=== PATIENT | male | born 1960 | race American Indian/Alaskan Native ===

== ENCOUNTER 2021-01-03 07:34 | Outpatient (CLI) | payer OTHER ==
--- NOTE | 2021-01-03 08:40 | Cat Scan Report ---
CT ABDOMEN AND PELVIS WITHOUT CONTRAST INDICATION / CLINICAL INFORMATION: MALIGNANT NEOPLASM OF PROSTATE. TECHNIQUE: Axial CT images were obtained through the abdomen and pelvis without IV contrast. All CT scans at [facility] location are performed using CT dose reduction for ALARA by means of automated exposure control. COMPARISON: None available. FINDINGS: LOWER CHEST: Mild linear atelectasis right middle lobe. LIVER: No significant abnormality. GALLBLADDER: No significant abnormality. BILE DUCTS: No significant abnormality. PANCREAS: No significant abnormality. SPLEEN: No significant abnormality. ADRENALS: No significant abnormality. RIGHT KIDNEY / URETER: No significant abnormality. LEFT KIDNEY / URETER: No significant abnormality. STOMACH / SMALL BOWEL: No significant abnormality. COLON: No significant abnormality. APPENDIX: No significant abnormality. PERITONEUM: No free fluid. No free air. No fluid collection. LYMPH NODES: No significant adenopathy. AORTA / ARTERIES: Mild atherosclerotic calcification without acute abnormality. IVC / VEINS: No significant abnormality. URINARY BLADDER: Mild thickening of the urinary bladder wall likely secondary to partial decompressio n. REPRODUCTIVE ORGANS: No significant abnormality. ADDITIONAL FINDINGS: None. SKELETAL SYSTEM: Small sclerotic foci of the right iliac and femoral head neck junction measure 4-5 m m and likely represent bone islands. No aggressive appearing osseous lesions. Multilevel degenerative changes are noted of the spine. Moderate bilateral hip arthrosis. IMPRESSION: 1. No acute inflammatory process of the abdomen or pelvis. 2. No significant parenchymal lesion, lymphadenopathy, or evidence of osseous metastases. Signer Name: Issac Rizvi MD Signed: 01/03/2021 8:36 AM Workstation Name: [id number]
--- NOTE | 2021-01-03 11:49 | Nuclear Medicine Report ---
NUCLEAR MEDICINE BONE SCAN, WHOLE BODY INDICATION / CLINICAL INFORMATION: MALIGNANT NEOPLASM OF PROSTATE. TECHNIQUE: 26.3 mCi of Tc-99m MDP were injected IV. Images were obtained of the whole body. COMPARISON: No prior nuclear medicine bone scan. CT abdomen and pelvis 01/03/2021 FINDINGS: BONES: No osseous lesion or other abnormality. JOINTS: Mild degenerative activity in the bilateral knees and right foot. Foci of increased uptake lo wer lumbar spine correlates with facet arthropathy seen on recent CT SOFT TISSUES: No significant abnormality. KIDNEYS: Minimal retention of radiotracer in bilateral kidneys. ADDITIONAL FINDINGS: None. IMPRESSION: 1. No scintigraphic evidence of osseous metastases. Signer Name: Issac Rizvi MD Signed: 01/03/2021 11:44 AM Workstation Name: [id number]
== END 2021-01-03 07:35 | disposition home or self-care (01) ==
LOC: NM 07:34
PROVIDERS: ATTEND Urology
DX: C61 Malignant neoplasm of prostate (principal); J98.11 Atelectasis; I70.0 Atherosclerosis of aorta; M47.815 Spondylosis without myelopathy or radiculopathy, thoracolumbar region; M17.0 Bilateral primary osteoarthritis of knee; M19.071 Primary osteoarthritis, right ankle and foot; M19.072 Primary osteoarthritis, left ankle and foot
CPT/HCPCS: 74176; 78306; A9503